=== PATIENT | female | born 1965 | race Caucasian/White ===

== ENCOUNTER 2020-03-01 00:42 | Emergency (ER) | payer OTHER ==
[2020-03-01] MEDS ORDERED: Adacel (T-DAP) 0.5 ML SYRINGE ONE (01:03)
[2020-03-01] MEDS ORDERED: Bacitracin 1 PK ONE (01:20)
--- NOTE | 2020-03-01 07:38 | RAD ---
RIGHT KNEE 4 VIEWS: DATE: 03/01/2020. FINDINGS: No fracture was seen. The patella appears intact and there is no joint effusion. Some bony spurring is seen from the lateral portion of the patella. IMPRESSION: Mild degenerative change, but no acute traumatic findings. POS: HOME
== END 2020-03-01 01:35 | disposition home or self-care (01) ==
LOC: BURERS 00:42
DX: S80.01XA Contusion of right knee, initial encounter (principal); S80.211A Abrasion, right knee, initial encounter; R60.0 Localized edema; Z23 Encounter for immunization; W01.198A Fall on same level from slipping, tripping and stumbling with subsequent striking against other object, initial encounter
CPT/HCPCS: 90471; 90715